=== PATIENT | male | born 1970 | race Caucasian/White ===

== ENCOUNTER → 2020-06-26 | Outpatient (CLI) | payer OTHER ==
--- NOTE | 2020-06-26 16:03 | XR ---
Left knee HISTORY: M 25.562, M 25.462, pain 3 views of the left knee There are needlelike metallic foreign bodies present within the soft tissues of the knee anteriorly a nd medially, one of the foreign bodies measures 7 to 8 mm in length and the second approximately 4 to 5 mm, there is a smaller focus measuring approximately 2 mm there is associated soft tissue swelling . No evident joint effusion. Bone mineralization, joint spaces and alignment are maintained. No fract ure or dislocation. IMPRESSION: Radiopaque foreign bodies, correlate for cellulitis, prepatellar bursitis. A [place] level critical message alert has been initiated for Ton Meneses Jr, DO via the [employer] Critical Results System on 06/26/2020 4:00 PM. This message alert has been sent to Ton irwin Jr, DO via the preferences provided by the clinician for the receipt of Radiology Critical Findin gs. Message ID [id number].
== END | disposition home or self-care (01) ==
LOC: RAD 15:35
PROVIDERS: ATTEND Family Medicine
DX: Z18.89 Other specified retained foreign body fragments (principal)

== ENCOUNTER 2024-05-24 09:19 | Day surgery (SDC) | payer OTHER ==
[2024-05-21 12:16] VITALS: BMI 28.9
[2024-05-24 09:41] VITALS: TEMP 97.1
[2024-05-24] MEDS: LACTATED RINGERS 1,000 ML IV SCH (09:45)
[2024-05-24] MEDS: IV FLUID CONTINUATION 1,000 ML IV ONE (09:46)
[2024-05-24] MEDS ORDERED: PROPOFOL 10 MG/ML 20 ML VIAL IV ONE (10:33)
--- NOTE | 2024-05-24 10:41 | P.GSHP ---
History of Present Illness H&P Date: 05/24/24 Chief Complaint: Family history colon cancer 54-year-old male who presents today for colonoscopy. Patient has a family history of colon cancer. Past Medical History Past Medical History: Hyperlipidemia, Hypertension Additional Past Medical History / Comment(s): concussion as a child History of Any Multi-Drug Resistant Organisms: None Reported Past Surgical History: Tonsillectomy Past Anesthesia/Blood Transfusion Reactions: No Reported Reaction Smoking Status: Former smoker - Past Family History Mother Family Medical History: No Reported History Father Family Medical History: Cancer Medications and Allergies Home Medications Medication Instructions Recorded Confirmed Type Atorvastatin [Lipitor] 20 mg PO DAILY 05/21/24 05/24/24 History Chlorthalidone [Hygroton] 25 mg PO DAILY 05/21/24 05/24/24 History Allergies Allergy/AdvReac Type Severity Reaction Status Date / Time latex Allergy Rash/Hives Verified 05/24/24 09:33 Surgical - Exam Vital Signs Temp Pulse Resp BP Pulse Ox 97.1 F L 76 16 147/91 95 05/24/24 09:40 05/24/24 09:40 05/24/24 09:40 05/24/24 09:40 05/24/24 09:40 - General well developed, well nourished, no distress - Eyes PERRL - ENT normal pinna - Neck no masses - Respiratory normal expansion - Cardiovascular Rhythm: regular - Abdomen Abdomen: soft, non tender Assessment and Plan Assessment: Family history colon cancer. Will perform colonoscopy.
--- NOTE | 2024-05-24 10:57 | P.OP ---
Date of Procedure: 05/24/24 Preoperative Diagnosis: Screening colonoscopy Family history of colon cancer Postoperative Diagnosis: Normal colonoscopy Procedure(s) Performed: Colonoscopy Anesthesia: MAC Surgeon: Isaiah Hull Pathology: none sent Condition: stable Disposition: PACU Description of Procedure: Patient was placed on the endoscopy table in the lateral position. He received IV sedation. The digital rectal exams performed which revealed no abnormality. The flexible colonoscope was then placed patient anus passed throughout the entire colon. The ileocecal valve was visualized. The cecum, ascending and transverse colon appeared normal. The descending and sigmoid colon appeared normal. Scope was brought back to the rectum this appeared normal. Scope withdrawn for patient.
[2024-05-24 11:36] VITALS: BP 121/69; PULSE 62; RESP 20
== END 2024-05-24 12:28 | disposition home or self-care (01) ==
LOC: ORWHC2ENDO 09:19
PROVIDERS: ATTEND Surgery
DX: Z12.11 Encounter for screening for malignant neoplasm of colon (principal); I10 Essential (primary) hypertension; E78.5 Hyperlipidemia, unspecified; Z80.0 Family history of malignant neoplasm of digestive organs; Z90.89 Acquired absence of other organs; Z87.891 Personal history of nicotine dependence; Z91.040 Latex allergy status
CPT/HCPCS: 45378; J2704